=== PATIENT | male | born 1935 | race Hispanic/Latino ===

== ENCOUNTER 2018-05-09 19:40 | Inpatient (IN) | payer MEDICARE ==
[~2018-05-09] VITALS: Ht 154.9 cm; Wt 58.6 kg
[~2018-05-09 19:40] MED LIST: ACET-2247 PO; AEC81 PO; ALEN70TA47 PO; AMLO10TA6 PO; ATOR10 PO; BIMA12.5OS OD; COMB5OS OD; ENAL10TA PO; GLIP5TAB11 PO; [UNRECOGNIZED DRUG - OTHER]; [UNRECOGNIZED DRUG - OTHER]
[2018-05-09 20:06] LABS: APPEARANCE,URINE TURBID (CLEAR); BILIRUBIN,URINE NEGATIVE (NEGATIVE); COLOR,URINE YELLOW (YELLOW); GLUCOSE, URINE (UA) NEGATIVE (NEGATIVE); KETONES,URINE 5 mg/dL (NEGATIVE); LEUKOCYTE ESTERASE ,URINE LARGE (NEGATIVE); NITRATE,URINE NEGATIVE (NEGATIVE); OCCULT BLOOD,URINE LARGE (NEGATIVE); PROTEIN,URINE 100 (NEGATIVE); UROBILINOGEN,URINE 0.2 mg/dL (0.2-1.0)
[2018-05-09] MEDS ORDERED: MEROPENEM 1 GM VIAL ONE (20:06)
[2018-05-09] MEDS ORDERED: SODIUM CHLORIDE 0.9% 1000ML 1,000 ML IV ONE (20:06)
[2018-05-09 20:12] LABS: BASOPHILS % (AUTO) 0.1 % (0.0-5.0); HEMATOCRIT 36.2 % (42-54); LYMPHOCYTES % (AUTO) 1.5 % (21.0-51.0); MEAN CORPUSCULAR HEMOGLOBIN 30.6 pg (27.0-33.0); MEAN CORPUSCULAR HGB CONC 33.3 g/dL (32.0-36.0); MEAN CORPUSCULAR VOLUME 91.8 fL (79-99); MONOCYTES % (AUTO) 3.7 % (3.0-13.0); NEUTROPHILS % (AUTO) 94.7 % (40.0-77.0); PLATELET COUNT (AUTO) 131 K/uL (130-400); RED BLOOD CELL COUNT(AUTO) 3.94 MIL/uL (4.50-6.20); RED CELL DISTRIBUTION WIDTH 14.8 % (11.0-15.5); WHITE BLOOD COUNT (AUTO) 15.6 K/uL (4.8-10.8)
[2018-05-09 20:22] LABS: WBC,URINE >100 /HPF (0-1)
[2018-05-09 20:24] LABS: BACTERIA,URINE Moderate /HPF (None Seen); SQUAMOUS EPITHELIAL CELL,UR None Seen /HPF (0-2)
[2018-05-09 20:36] LABS: INR 1.03 (0.85-1.15); PARTIAL THROMBOPLASTIN TIME 29.8 SEC (26.3-35.5); PROTHROMBIN TIME 10.8 SEC (9.6-11.6)
[2018-05-09 20:40] LABS: ALBUMIN 1.9 g/dL (3.5-5.0); BILIRUBIN,TOTAL 1.1 mg/dL (0.2-1.0); CREATININE 3.7 mg/dL (0.5-1.5); POTASSIUM 5.9 mmol/L (3.5-5.1); TOTAL PROTEIN, SERUM 6.2 g/dL (6.0-8.3); TROPONIN I 0.1 ng/mL (0.00-0.06)
[2018-05-09] MEDS ORDERED: GLUCAGON 1MG KIT 1 MG ML IM PRN (21:45)
[2018-05-09] MEDS ORDERED: DEXTROSE 50%-WATER 50 ML DISP.SYRIN IV PRN (21:45)
[2018-05-09] MEDS ORDERED: SODIUM CHLORIDE 0.9% 10 ML VIAL IVP PRN (21:45)
[2018-05-09] MEDS ORDERED: NITROGLYCERIN 0.4 MG SL TAB SL PRN (21:45)
[2018-05-09] MEDS ORDERED: LACTULOSE 20 GM/30 ML UDCUP PO PRN (21:45)
[2018-05-09 23:20] VITALS: BP 175/81
[2018-05-10] MEDS: SODIUM CHLORIDE 0.9% 1000ML 1,000 ML IV SCH ×3 (00:14→16:44)
[2018-05-10] MEDS ORDERED: SODIUM POLYSTYRENE SULFONATE 15 GM/60 ML ML ONE (01:18)
[2018-05-10] MEDS ORDERED: BENZ200C53 PO (01:57)
[2018-05-10] MEDS ORDERED: LORA1TAB3 PO (01:57)
[2018-05-10] MEDS ORDERED: INSU100V12 SQ (01:57)
[2018-05-10] MEDS ORDERED: CARV6.25 PO (01:57)
[2018-05-10] MEDS ORDERED: DONE5TAB33 PO (01:57)
[2018-05-10] MEDS ORDERED: FAMO20TA8 PO (01:57)
[2018-05-10] MEDS ORDERED: LATA7.5D OU (01:57)
[2018-05-10] MEDS ORDERED: ALBU6.7H IH (01:57)
[2018-05-10] MEDS ORDERED: BRIM5DRO OU (01:57)
[2018-05-10] MEDS ORDERED: CALC0.253 PO (01:57)
[2018-05-10] MEDS ORDERED: MEMA5TAB PO (01:57)
[2018-05-10] MEDS ORDERED: MIRT7.5T11 PO (01:57)
[2018-05-10] MEDS ORDERED: TAMS0.4C32 PO (01:57)
[2018-05-10] MEDS ORDERED: [UNRECOGNIZED DRUG - CODE] OS (01:57)
[2018-05-10] MEDS ORDERED: RIVA20TA PO (01:57)
[2018-05-10] MEDS ORDERED: ACET650S30 RC (01:57)
[2018-05-10 04:32] VITALS: BP 183/81
[2018-05-10 05:05] VITALS: BP 158/79
[2018-05-10 06:15] LABS: BASOPHILS % (AUTO) 0.1 % (0.0-5.0); EOSINOPHILS % (AUTO) 0.1 % (0.0-8.0); HEMATOCRIT 39.6 % (42-54); LYMPHOCYTES % (AUTO) 4.2 % (21.0-51.0); MEAN CORPUSCULAR HEMOGLOBIN 29.2 pg (27.0-33.0); MEAN CORPUSCULAR HGB CONC 31.9 g/dL (32.0-36.0); MEAN CORPUSCULAR VOLUME 91.3 fL (79-99); MONOCYTES % (AUTO) 6.1 % (3.0-13.0); NEUTROPHILS % (AUTO) 89.5 % (40.0-77.0); PLATELET COUNT (AUTO) 88 K/uL (130-400); RED BLOOD CELL COUNT(AUTO) 4.33 MIL/uL (4.50-6.20); RED CELL DISTRIBUTION WIDTH 14.8 % (11.0-15.5); WHITE BLOOD COUNT (AUTO) 13.1 K/uL (4.8-10.8)
[2018-05-10 06:31] LABS: ALBUMIN 2.1 g/dL (3.5-5.0); BILIRUBIN,TOTAL 1.1 mg/dL (0.2-1.0); CREATININE 2.8 mg/dL (0.5-1.5); CRP QUANTITATIVE 150.6 mg/L (0.00-9.0); TOTAL PROTEIN, SERUM 6.3 g/dL (6.0-8.3)
[2018-05-10] MEDS: INSULIN R PO SS1 SQ SCH ×4 (06:40→21:00)
[2018-05-10 08:00] VITALS: BP 145/65
[2018-05-10] MEDS ORDERED: SODIUM POLYSTYRENE SULFONATE 15 GM/60 ML ML PO NR (09:00)
[2018-05-10] MEDS: MEROPENEM 1 GM VIAL IVP SCH ×3 (10:14→20:10)
[2018-05-10 11:00] VITALS: BP 132/55
[2018-05-10 16:00] VITALS: BP_SYST 109; BP_SYST 153; BP_DIAS 46; BP_DIAS 63
[2018-05-10 19:00] VITALS: BP 121/61
[2018-05-11 03:00] VITALS: BP 136/67
[2018-05-11 04:36] LABS: HEMATOCRIT 33.6 % (42-54); MEAN CORPUSCULAR HEMOGLOBIN 30.5 pg (27.0-33.0); MEAN CORPUSCULAR HGB CONC 33.1 g/dL (32.0-36.0); MEAN CORPUSCULAR VOLUME 92.2 fL (79-99); PLATELET COUNT (AUTO) 72 K/uL (130-400); RED BLOOD CELL COUNT(AUTO) 3.64 MIL/uL (4.50-6.20); RED CELL DISTRIBUTION WIDTH 14.9 % (11.0-15.5); WHITE BLOOD COUNT (AUTO) 12.1 K/uL (4.8-10.8)
[2018-05-11 04:41] LABS: CREATININE 1.9 mg/dL (0.5-1.5); POTASSIUM 3.1 mmol/L (3.5-5.1)
[2018-05-11] MEDS: SODIUM CHLORIDE 0.9% 1000ML 1,000 ML IV SCH ×2 (05:31→20:28)
[2018-05-11] MEDS: INSULIN R PO SS1 SQ SCH ×4 (06:41→20:48)
[2018-05-11 07:40] VITALS: BP 183/78
[2018-05-11] MEDS ORDERED: POTASSIUM CHLORIDE 20 MEQ ERTAB PO SCH (08:45)
[2018-05-11] MEDS: CLONIDINE HCL 0.1 MG TABLET PO PRN ×2 (09:00→14:01)
[2018-05-11] MEDS: MEROPENEM 1 GM VIAL IVP SCH (09:01)
[2018-05-11 11:47] VITALS: BP 181/63
[2018-05-11] MEDS ORDERED: LABETALOL 20 MG/4 ML DISP.SYRIN IV PRN (13:15)
[2018-05-11 16:00] VITALS: BP 137/55
[2018-05-11] MEDS: CEFTRIAXONE SODIUM 2 GM VIAL IVP SCH (18:15)
[2018-05-11 20:13] VITALS: BP 158/69
[2018-05-11] MEDS: CLONIDINE HCL 0.1 MG TABLET PO SCH (20:28)
[2018-05-12] VITALS: BP 161/69
[2018-05-12 04:32] VITALS: BP_SYST 157; BP_SYST 175; BP_DIAS 88
[2018-05-12] MEDS: INSULIN R PO SS1 SQ SCH ×4 (06:35→20:41)
[2018-05-12 07:46] VITALS: BP 164/70
[2018-05-12 09:29] LABS: BASOPHILS % (AUTO) 0.1 % (0.0-5.0); EOSINOPHILS % (AUTO) 0.9 % (0.0-8.0); HEMATOCRIT 33.9 % (42-54); LYMPHOCYTES % (AUTO) 13.8 % (21.0-51.0); MEAN CORPUSCULAR HGB CONC 32.9 g/dL (32.0-36.0); MEAN CORPUSCULAR VOLUME 91.3 fL (79-99); NEUTROPHILS % (AUTO) 76.2 % (40.0-77.0); PLATELET COUNT (AUTO) 52 K/uL (130-400); RED BLOOD CELL COUNT(AUTO) 3.71 MIL/uL (4.50-6.20); RED CELL DISTRIBUTION WIDTH 14.9 % (11.0-15.5); WHITE BLOOD COUNT (AUTO) 11.2 K/uL (4.8-10.8)
[2018-05-12 09:37] LABS: CREATININE 1.2 mg/dL (0.5-1.5); POTASSIUM 3.6 mmol/L (3.5-5.1)
[2018-05-12] MEDS: CLONIDINE HCL 0.1 MG TABLET PO SCH ×2 (10:07→20:39)
[2018-05-12] MEDS: AMLODIPINE BESYLATE 5 MG TAB PO SCH (10:07)
[2018-05-12 11:24] VITALS: BP 175/77
[2018-05-12] MEDS: CEFTRIAXONE SODIUM 2 GM VIAL IVP SCH (15:48)
[2018-05-12] MEDS: SODIUM CHLORIDE 0.9% 1000ML 1,000 ML IV SCH ×2 (16:43→22:41)
[2018-05-12 16:48] VITALS: BP 104/52
[2018-05-12 19:51] VITALS: BP 140/60
[2018-05-13] VITALS: BP 131/65
[2018-05-13 03:39] VITALS: BP 151/70
[2018-05-13 05:09] LABS: BASOPHILS % (AUTO) 0.1 % (0.0-5.0); EOSINOPHILS % (AUTO) 1.5 % (0.0-8.0); HEMATOCRIT 33.3 % (42-54); LYMPHOCYTES % (AUTO) 20.6 % (21.0-51.0); MEAN CORPUSCULAR HEMOGLOBIN 30.4 pg (27.0-33.0); MEAN CORPUSCULAR HGB CONC 33.1 g/dL (32.0-36.0); MEAN CORPUSCULAR VOLUME 92.1 fL (79-99); MONOCYTES % (AUTO) 8.5 % (3.0-13.0); NEUTROPHILS % (AUTO) 69.3 % (40.0-77.0); PLATELET COUNT (AUTO) 59 K/uL (130-400); RED BLOOD CELL COUNT(AUTO) 3.62 MIL/uL (4.50-6.20); WHITE BLOOD COUNT (AUTO) 11.6 K/uL (4.8-10.8)
[2018-05-13 05:17] LABS: CREATININE 1.1 mg/dL (0.5-1.5); POTASSIUM 3.3 mmol/L (3.5-5.1)
[2018-05-13] MEDS: INSULIN R PO SS1 SQ SCH ×4 (05:45→20:58)
[2018-05-13 07:54] VITALS: BP 131/71
[2018-05-13] MEDS: AMLODIPINE BESYLATE 5 MG TAB PO SCH (09:44)
[2018-05-13] MEDS: CLONIDINE HCL 0.1 MG TABLET PO SCH ×2 (09:44→19:58)
[2018-05-13] MEDS: MEROPENEM 1 GM VIAL IVP SCH ×2 (09:47→16:14)
[2018-05-13 11:59] VITALS: BP 142/74
[2018-05-13] MEDS: SODIUM CHLORIDE 0.9% 1000ML 1,000 ML IV SCH (12:10)
[2018-05-13 15:54] VITALS: BP 138/71
[2018-05-13 19:38] VITALS: BP 134/60
[2018-05-14] VITALS (7 sets, daily range): BP systolic 98–146; BP diastolic 41–70
[2018-05-14] MEDS ORDERED: SODIUM CHLORIDE 0.9% 50 ML IV ONE (00:30)
[2018-05-14] MEDS: MEROPENEM 1 GM VIAL IVP SCH ×3 (00:33→17:58)
[2018-05-14] MEDS: SODIUM CHLORIDE 0.9% 1000ML 1,000 ML IV SCH ×2 (01:31→14:25)
[2018-05-14] MEDS: INSULIN R PO SS1 SQ SCH ×4 (06:05→23:59)
[2018-05-14 09:15] LABS: BASOPHILS % (AUTO) 0.2 % (0.0-5.0); EOSINOPHILS % (AUTO) 1.5 % (0.0-8.0); HEMATOCRIT 34.6 % (42-54); LYMPHOCYTES % (AUTO) 19.3 % (21.0-51.0); MEAN CORPUSCULAR HEMOGLOBIN 29.5 pg (27.0-33.0); MEAN CORPUSCULAR HGB CONC 32.1 g/dL (32.0-36.0); MONOCYTES % (AUTO) 5.5 % (3.0-13.0); NEUTROPHILS % (AUTO) 73.5 % (40.0-77.0); PLATELET COUNT (AUTO) 63 K/uL (130-400); RED BLOOD CELL COUNT(AUTO) 3.76 MIL/uL (4.50-6.20); RED CELL DISTRIBUTION WIDTH 15.1 % (11.0-15.5); WHITE BLOOD COUNT (AUTO) 11.2 K/uL (4.8-10.8)
[2018-05-14] MEDS: AMLODIPINE BESYLATE 5 MG TAB PO SCH (09:24)
[2018-05-14] MEDS: CLONIDINE HCL 0.1 MG TABLET PO SCH (09:25)
[2018-05-14 09:46] LABS: POTASSIUM 3.4 mmol/L (3.5-5.1)
[2018-05-14] MEDS ORDERED: POTASSIUM CHLORIDE 10% ELIXIR 20 MEQ/15 ML UDCUP ONE (14:13)
[2018-05-14 21:51] LABS: INR 1.08 (0.85-1.15); PARTIAL THROMBOPLASTIN TIME 28.7 SEC (26.3-35.5); PROTHROMBIN TIME 11.3 SEC (9.6-11.6)
[2018-05-15] MEDS: CLONIDINE HCL 0.1 MG TABLET PO SCH ×2 (00:05→11:28)
[2018-05-15] MEDS: MEROPENEM 1 GM VIAL IVP SCH ×3 (01:31→17:32)
[2018-05-15] MEDS: SODIUM CHLORIDE 0.9% 1000ML 1,000 ML IV SCH ×2 (03:45→17:05)
[2018-05-15 04:33] VITALS: BP 104/51
[2018-05-15 05:23] LABS: BASOPHILS % (AUTO) 0.1 % (0.0-5.0); EOSINOPHILS % (AUTO) 1.9 % (0.0-8.0); HEMATOCRIT 31.1 % (42-54); LYMPHOCYTES % (AUTO) 25.5 % (21.0-51.0); MEAN CORPUSCULAR HEMOGLOBIN 31.2 pg (27.0-33.0); MEAN CORPUSCULAR HGB CONC 33.9 g/dL (32.0-36.0); MEAN CORPUSCULAR VOLUME 91.9 fL (79-99); MONOCYTES % (AUTO) 6.1 % (3.0-13.0); NEUTROPHILS % (AUTO) 66.4 % (40.0-77.0); NUCLEATED RED BLOOD CELLS 0.1 % (0.0-0.19); PLATELET COUNT (AUTO) 99 K/uL (130-400); RED BLOOD CELL COUNT(AUTO) 3.38 MIL/uL (4.50-6.20); WHITE BLOOD COUNT (AUTO) 9.7 K/uL (4.8-10.8)
[2018-05-15 05:33] LABS: ALBUMIN 1.6 g/dL (3.5-5.0); BILIRUBIN,TOTAL 0.9 mg/dL (0.2-1.0); POTASSIUM 3.1 mmol/L (3.5-5.1); TOTAL PROTEIN, SERUM 4.8 g/dL (6.0-8.3)
[2018-05-15] MEDS: INSULIN R PO SS1 SQ SCH ×3 (06:21→17:31)
[2018-05-15 07:49] VITALS: BP 119/51
[2018-05-15] MEDS ORDERED: LIDOCAINE HCL-MPF 1% 2ML VIAL IVP PRN ×2 (10:30→10:45)
[2018-05-15] MEDS ORDERED: POTASSIUM CHLORIDE 20MEQ/100ML 100 ML IV PRN ×2 (10:30→10:45)
[2018-05-15] MEDS ORDERED: POTASSIUM CHLORIDE 10% ELIXIR 20 MEQ/15 ML UDCUP PO PRN (10:45)
[2018-05-15] MEDS ORDERED: POTASSIUM CHLORIDE 20 MEQ ERTAB PO PRN (10:45)
[2018-05-15] MEDS: AMLODIPINE BESYLATE 5 MG TAB PO SCH (11:23)
[2018-05-15 11:36] VITALS: BP 126/86
[2018-05-15 11:36] LABS: CREATININE 0.9 mg/dL (0.5-1.5); POTASSIUM 3.5 mmol/L (3.5-5.1)
[2018-05-15 16:25] VITALS: BP 141/91
== END 2018-05-15 19:27 | DRG 872 ==
LOC: EDH 19:40 → EDHIP 21:05 → 4BH 22:00
PROVIDERS: ADMIT Hospitalist; ATTEND Hospitalist
PROC: 05HN33Z Insertion of Infusion Device into Left Internal Jugular Vein, Percutaneous Approach (ICD-10-PCS; principal; 2018-05-14)
PROC: 05HY33Z Insertion of Infusion Device into Upper Vein, Percutaneous Approach (ICD-10-PCS; 2018-05-15)
DX: A41.50 Gram-negative sepsis, unspecified (principal); N13.6 Pyonephrosis; E44.1 Mild protein-calorie malnutrition; N17.9 Acute kidney failure, unspecified; I25.10 Atherosclerotic heart disease of native coronary artery without angina pectoris; I12.9 Hypertensive chronic kidney disease with stage 1 through stage 4 chronic kidney disease, or unspecified chronic kidney disease; Z66 Do not resuscitate; E11.22 Type 2 diabetes mellitus with diabetic chronic kidney disease; C61 Malignant neoplasm of prostate; B96.20 Unspecified Escherichia coli [E. coli] as the cause of diseases classified elsewhere; D69.6 Thrombocytopenia, unspecified; E11.51 Type 2 diabetes mellitus with diabetic peripheral angiopathy without gangrene; R62.7 Adult failure to thrive; E21.3 Hyperparathyroidism, unspecified; E78.5 Hyperlipidemia, unspecified; E87.6 Hypokalemia; F03.90 Unspecified dementia, unspecified severity, without behavioral disturbance, psychotic disturbance, mood disturbance, and anxiety; M81.0 Age-related osteoporosis without current pathological fracture; N18.9 Chronic kidney disease, unspecified; N28.1 Cyst of kidney, acquired; N40.0 Benign prostatic hyperplasia without lower urinary tract symptoms; Z16.24 Resistance to multiple antibiotics; Z74.01 Bed confinement status; Z82.49 Family history of ischemic heart disease and other diseases of the circulatory system; Z82.62 Family history of osteoporosis; Z68.24 Body mass index [BMI] 24.0-24.9, adult; Z83.3 Family history of diabetes mellitus; Z85.46 Personal history of malignant neoplasm of prostate; Z85.51 Personal history of malignant neoplasm of bladder; Z87.440 Personal history of urinary (tract) infections; Z87.442 Personal history of urinary calculi; Z95.0 Presence of cardiac pacemaker; Z95.1 Presence of aortocoronary bypass graft; Z99.3 Dependence on wheelchair
CPT/HCPCS: 36415; 71045; 74176; 76770; 80048; 80053; 81001; 82550; 82948; 83605; 83874; 83880; 84484; 85025; 85027; 85610; 85730; 86140; 87040; 87077; 87088; 87186; 93005; 97039; A4218; A4344; C1894; J0696; J1815; J2185; J7030

== ENCOUNTER 2019-06-03 17:02 | Inpatient (IN) | payer MEDICARE ==
[~2019-06-03] VITALS: Ht 167.6 cm; Wt 68.7 kg
[~2019-06-03 17:02] MED LIST changes: -ACET-2247 PO; +ACET650S30 RC; -AEC81 PO; +ALBU6.7H9 IH; -ALEN70TA47 PO; -AMLO10TA6 PO; +BENZ200C53 PO; -BIMA12.5OS OD; +BRIM5DRO OU; +CALC0.253 PO; +CARV6.25 PO; -COMB5OS OD; +DONE5TAB33 PO; -ENAL10TA PO; +FAMO20TA8 PO; -GLIP5TAB11 PO; +INSU100V12 SQ; +LATA7.5D OU; +LORA1TAB3 PO; +MEMA5TAB PO; +MIRT7.5T11 PO; +NITR100C4 PO; +RIVA20TA PO; +TAMS0.4C32 PO; +[UNRECOGNIZED DRUG - CODE] OS; -[UNRECOGNIZED DRUG - OTHER]; -[UNRECOGNIZED DRUG - OTHER]
[2019-06-03 17:38] LABS: BASOPHILS % (AUTO) 0.2 % (0.0-5.0); EOSINOPHILS % (AUTO) 0.3 % (0.0-8.0); LYMPHOCYTES % (AUTO) 16.6 % (21.0-51.0); MEAN CORPUSCULAR HEMOGLOBIN 31.3 pg (27.0-33.0); MEAN CORPUSCULAR HGB CONC 30.6 g/dL (32.0-36.0); MEAN CORPUSCULAR VOLUME 102.4 fL (79-99); MONOCYTES % (AUTO) 6.9 % (3.0-13.0); NUCLEATED RED BLOOD CELLS 0.6 % (0.0-0.19); PLATELET COUNT (AUTO) 231 K/uL (130-400); RED BLOOD CELL COUNT(AUTO) 1.31 MIL/uL (4.50-6.20); RED CELL DISTRIBUTION WIDTH 20.7 % (11.0-15.5); WHITE BLOOD COUNT (AUTO) 18.3 K/uL (4.8-10.8)
[2019-06-03 17:50] LABS: INR 1.45 (0.85-1.15); PARTIAL THROMBOPLASTIN TIME 31.3 SEC (26.3-35.5)
[2019-06-03 18:01] LABS: HEMATOCRIT 13.4 % (42-54)
[2019-06-03 18:09] LABS: ALANINE AMINOTRANSFERASE 35 U/L (12-78); ALBUMIN 1.7 g/dL (3.5-5.0); ASPARTATE AMINOTRANSFERASE 24 U/L (10-37); BILIRUBIN,TOTAL 0.8 mg/dL (0.2-1.0); CARBON DIOXIDE 24 mmol/L (21-32); CHLORIDE 104 mmol/L (101-111); CREATINE KINASE, TOTAL 36 U/L (21-232); CREATININE 1.6 mg/dL (0.5-1.5); GLOMERULAR FILTR. RATE CALC 44 mL/min (>60); MYOGLOBIN 78 ng/mL (10-92); POTASSIUM 4.7 mmol/L (3.5-5.1); SODIUM SERUM 136 mmol/L (136-145); TOTAL PROTEIN, SERUM 4.6 g/dL (6.0-8.3); TROPONIN I < 0.04 ng/mL (0.00-0.06); UREA NITROGEN, BLOOD 39 mg/dL (7-18)
[2019-06-03 18:22] LABS: GLUCOSE,RANDOM 494 mg/dL (70-105)
[2019-06-03] MEDS ORDERED: ZOSYN 3.375GM+NS 50ML 50 ML IV ONE (18:29)
[2019-06-03 18:43] LABS: APPEARANCE,URINE Cloudy (CLEAR); BILIRUBIN,URINE Negative (NEGATIVE); COLOR,URINE Yellow (YELLOW); GLUCOSE, URINE (UA) >=1000 mg/dL (NEGATIVE); KETONES,URINE Negative (NEGATIVE); LEUKOCYTE ESTERASE ,URINE Negative (NEGATIVE); NITRATE,URINE Negative (NEGATIVE); OCCULT BLOOD,URINE Large (NEGATIVE); PROTEIN,URINE Negative (NEGATIVE); UROBILINOGEN,URINE 0.2 mg/dL (0.2-1.0)
[2019-06-03 18:54] LABS: BACTERIA,URINE Rare /HPF (None Seen)
[2019-06-03 18:56] LABS: SQUAMOUS EPITHELIAL CELL,UR Rare /HPF (0-2)
[2019-06-03] MEDS ORDERED: ACETAMINOPHEN 325 MG TAB PO PRN ×2 (20:00)
[2019-06-03] MEDS ORDERED: ONDANSETRON HCL 4 MG/2 ML VIAL IV PRN (20:00)
[2019-06-03] MEDS ORDERED: CEFTRIAXONE SODIUM 1 GM IVP SCH (20:15)
[2019-06-03] MEDS ORDERED: AZITHROMYCIN 500MG+NS 250ML 250 ML IV SCH (20:30)
[2019-06-03] MEDS ORDERED: SODIUM CHLORIDE 0.9% 1000ML 1,000 ML IV ONE (21:15)
[2019-06-03] MEDS ORDERED: INSULIN HUMULIN R 100 UNIT/ML 3ML ONE (22:13)
--- NOTE | 2019-06-03 22:30 | NUR ---
1 unit of blood started at ER. I finished giving the unit and started unit number 2.
[2019-06-03] MEDS ORDERED: AMLO10TA7 PO (23:24)
[2019-06-03] MEDS ORDERED: BUPR75TA8 PO (23:24)
[2019-06-03] MEDS ORDERED: ASPI-555 PO (23:24)
[2019-06-03] MEDS ORDERED: ACET325C6 PO (23:24)
[2019-06-03] MEDS ORDERED: DONE10TA8 PO (23:24)
[2019-06-03] MEDS ORDERED: LEVE100S7 PO (23:40)
[2019-06-03] MEDS ORDERED: TICA90TA PO (23:52)
[2019-06-03] MEDS ORDERED: MENT113O8 TP (23:52)
[2019-06-03] MEDS ORDERED: MEMA10TA11 PO (23:52)
[2019-06-03] MEDS ORDERED: FURO20TA6 PO (23:52)
[2019-06-03] MEDS ORDERED: OLAN2.5T3 PO (23:52)
[2019-06-04] VITALS (18 sets, daily range): BP systolic 115–171; BP diastolic 40–84
--- NOTE | 2019-06-04 00:21 | NUR ---
bahena catheter present on arrival from [facility], [place] Addendum: 06/04/19 at 0040 by MICHELLE LYNCH RN Amended: Links added.
[2019-06-04] MEDS: INSULIN HUMULIN R 100 UNIT/ML 3ML SQ SCH ×5 (00:53→21:00)
[2019-06-04] MEDS ORDERED: ZOSYN 3.375GM+NS 50ML 50 ML IV SCH (02:00)
[2019-06-04] MEDS: SODIUM CHLORIDE 0.9% 1000ML 1,000 ML IV SCH ×3 (02:55→18:23)
--- NOTE | 2019-06-04 03:43 | NUR ---
CONFUSED Pt reoriented prn,disoriented to time and place.Fall risk precautions reinforced.
[2019-06-04 05:49] LABS: BASOPHILS % (AUTO) 0.2 % (0.0-5.0); EOSINOPHILS % (AUTO) 0.1 % (0.0-8.0); HEMATOCRIT 23.1 % (42-54); LYMPHOCYTES % (AUTO) 17.9 % (21.0-51.0); MEAN CORPUSCULAR HEMOGLOBIN 31.7 pg (27.0-33.0); MEAN CORPUSCULAR HGB CONC 32.1 g/dL (32.0-36.0); MEAN CORPUSCULAR VOLUME 98.8 fL (79-99); MONOCYTES % (AUTO) 7.8 % (3.0-13.0); NUCLEATED RED BLOOD CELLS 2.3 % (0.0-0.19); PLATELET COUNT (AUTO) 167 K/uL (130-400); RED BLOOD CELL COUNT(AUTO) 2.34 MIL/uL (4.50-6.20); RED CELL DISTRIBUTION WIDTH 15.6 % (11.0-15.5); WHITE BLOOD COUNT (AUTO) 18.7 K/uL (4.8-10.8)
[2019-06-04 05:57] LABS: CREATININE 1.1 mg/dL (0.5-1.5); POTASSIUM 4.3 mmol/L (3.5-5.1)
[2019-06-04] MEDS ORDERED: PILOCARPINE HCL 2% 15 ML DROPS OS SCH (09:00)
[2019-06-04] MEDS: BUPROPION HCL 150 MG TABLET.SA PO SCH (09:00)
[2019-06-04] MEDS: MEMANTINE HCL 5 MG TABLET PO SCH ×2 (09:00→21:00)
[2019-06-04] MEDS: ZINC OXIDE OINT 56.7 GM TP SCH ×2 (09:00→21:00)
[2019-06-04] MEDS: LEVETIRACETAM 250 MG TABLET PO SCH ×2 (09:00→21:00)
[2019-06-04] MEDS: FUROSEMIDE 20 MG TABLET PO SCH (09:00)
[2019-06-04] MEDS ORDERED: FAMOTIDINE/PF 20 MG/2 ML VIAL IV SCH (09:00)
[2019-06-04] MEDS: CARVEDILOL 6.25 MG TABLET PO SCH ×2 (09:00→21:00)
[2019-06-04] MEDS: AMLODIPINE BESYLATE 5 MG TAB PO SCH (09:00)
[2019-06-04] MEDS: PILOCARPINE HCL 2% 15 ML DROPS OS SCH ×3 (09:06→22:11)
--- NOTE | 2019-06-04 10:00 | NUR ---
DYSPHAGIA EVCRISTINA LOVE. RECOMMEND PUREED, HONEY-THICK LIQUIDS; PILLS CRUSHED. RECOMMENDATIONS: 1. MBSS 2. GOALS TO BE ESTABLISHED AFTER MBSS. Addendum: 06/04/19 at 1708 by CLARIBEL CALI, [facility] Amended: Links added.
--- NOTE | 2019-06-04 10:21 | NUR ---
DR PETERS CALLED BACK. EGD FOR TOMORROW. PROTONIX IV ORDERED.
[2019-06-04 12:00] LABS: HEMATOCRIT 19.7 % (42-54)
[2019-06-04] MEDS ORDERED: VANCOMYCIN PROTOCOL PER PHARMACY IV SCH (12:30)
[2019-06-04] MEDS ORDERED: SODIUM CHLORIDE 0.9% 250 ML IV ONE (12:41)
[2019-06-04] MEDS: ZOSYN 3.375GM+NS 50ML 50 ML IV SCH ×2 (12:42→22:10)
--- NOTE | 2019-06-04 14:00 | NUR ---
[facility] CM met with pt currently unable to answer questions appropriately, called daughter on facesheet. Spoke to Basilia Meza [phone]. As per daughter patient is assists with ADL's, currently long-term at [facility]. Plan dc back to [facility] once stable, MAI Telephone consent obtained. DC plan back to [facility]. CM to cont to follow up. Addendum: 06/04/19 at 1404 by ANASTACIA CUNHA LVN CM Amended: Links added.
--- NOTE | 2019-06-04 14:29 | NUR ---
[facility] CONSULT PATIENT ASSESSED REQUESTED: PATIENT PRESENTS WITH DTI TO RIGHT HEEL; [facility] RECOMMENDATIONS SUBMITTED. Addendum: 06/04/19 at 1430 by CRISTOBAL AVILA LVN Amended: Links added.
--- NOTE | 2019-06-04 14:30 | NUR ---
RD NOTIFICATION DX: ANEMIA, POSITIVE STOOL OCCULT. DIET: NPO. PT FEELING NAUSEOUS AND WEAK DURING TIME OF VISIT. PT CAME FROM [facility] AND WAS EATING WELL PER FAMILY. PT HAVING DARK COLORED STOOLS. CONSULT REGISTERED LAND SURVEYOR FOR DIET MODIFICATIONS DUE TO SWALLOWING/ CHEWING DIFFICULTIES. REGISTERED LAND SURVEYOR AND GI ALREADY ON PT CASE PER NURSE. RD RECOMMENDS CONTINUE NPO. CONSULT GI FOR CLEARANCE TO ADVANCE DIET/ IDENTIFY SOURCE OF BLEED IN ORDER TO PROVIDE FEEDINGS. RD WILL CONTINUE TO MONITOR AND FOLLOW UP NEEDED. THANK YOU. Addendum: 06/04/19 at [address] Amended: Links added.
[2019-06-04] MEDS ORDERED: VANCOMYCIN 1.5 GM in SODIUM CHLORIDE 0.9% 250 ML IV SCH (14:45)
[2019-06-04] MEDS ORDERED: COMPOUND IV REFRIGERATED 1 EACH IVSOLN MISC PRN (15:00)
--- NOTE | 2019-06-04 15:30 | NUR ---
PATIENT TRANSFERRED TO ICU. REPORT GIVEN TO CHUN. NO CONCERNS VOICED.
--- NOTE | 2019-06-04 15:42 | NUR ---
CM Note: [facility] reacceptance CM spoke to Roxane w/[facility], received clinicals. Stated pt does not need new PASRR at this time. Pt has reacceptance. EMS filled out pending to be faxed w/current date, primary nurse to call [facility] once pt ready to DC. Primary nurse aware. CM to cont to follow up.
--- NOTE | 2019-06-04 20:06 | NUR ---
Assumed care of patient after report received from [facility]. PRBC unit #2 of 2 ordered hung to infuse at 1925. Patient lethargic. Initial assessment done. Contact Precautions Isolation in progress. No family in room.
[2019-06-04] MEDS: TAMSULOSIN HCL 0.4 MG CAP.ER.24H PO SCH (21:00)
[2019-06-04] MEDS ORDERED: PANTOPRAZOLE 40 MG/VIAL IVP SCH (21:00)
[2019-06-04] MEDS: DONEPEZIL HCL 5 MG TAB PO SCH (21:00)
[2019-06-04] MEDS ORDERED: MIRTAZAPINE 15 MG TABLET PO SCH (21:00)
[2019-06-04] MEDS: ATORVASTATIN CALCIUM 10 MG TABLET PO SCH (21:00)
[2019-06-04] MEDS: LATANOPROST 2.5 ML DROPS OU SCH (22:10)
[2019-06-04 22:47] LABS: HEMATOCRIT 32.2 % (42-54)
[2019-06-05] VITALS (19 sets, daily range): BP systolic 122–161; BP diastolic 49–74
[2019-06-05 04:34] LABS: BASOPHILS % (AUTO) 0.4 % (0.0-5.0); HEMATOCRIT 29.2 % (42-54); LYMPHOCYTES % (AUTO) 20.3 % (21.0-51.0); MEAN CORPUSCULAR HEMOGLOBIN 30.9 pg (27.0-33.0); MEAN CORPUSCULAR VOLUME 90.8 fL (79-99); MONOCYTES % (AUTO) 8.3 % (3.0-13.0); NUCLEATED RED BLOOD CELLS 2.3 % (0.0-0.19); PLATELET COUNT (AUTO) 174 K/uL (130-400); RED BLOOD CELL COUNT(AUTO) 3.22 MIL/uL (4.50-6.20); RED CELL DISTRIBUTION WIDTH 16.3 % (11.0-15.5); WHITE BLOOD COUNT (AUTO) 12.9 K/uL (4.8-10.8)
[2019-06-05 04:44] LABS: INR 0.99 (0.85-1.15); PROTHROMBIN TIME 10.4 SEC (9.6-11.6)
[2019-06-05 04:47] LABS: CREATININE 0.9 mg/dL (0.5-1.5); POTASSIUM 3.8 mmol/L (3.5-5.1)
[2019-06-05] MEDS: INSULIN HUMULIN R 100 UNIT/ML 3ML SQ SCH ×4 (05:58→22:26)
[2019-06-05] MEDS: ZOSYN 3.375GM+NS 50ML 50 ML IV SCH ×3 (06:07→22:07)
[2019-06-05] MEDS: PILOCARPINE HCL 2% 15 ML DROPS OS SCH ×3 (07:52→22:46)
[2019-06-05] MEDS ORDERED: FAMOTIDINE/PF 20 MG/2 ML VIAL IV SCH (09:00)
[2019-06-05] MEDS ORDERED: PANTOPRAZOLE SODIUM 40 MG TABLET.DR PO SCH (09:00)
--- NOTE | 2019-06-05 09:00 | NUR ---
HOLD MBSS Pt LETHARGIC AT THIS TIME. NURSE BELKIS AND PUNCHER AND FASTENER ATTEMPTED TO AROUSE Pt AND WERE NOT SUCCESSFUL. Pt NPO AT THIS TIME FOR EGD PROCEDURE. RECOMMEND MBSS BE SCHEDULED FOR TOMORROW. PUNCHER AND FASTENER WILL CONTINUE TO FOLLOW Pt. Addendum: 06/05/19 at 1243 by CLARIBEL CALI, SPT ST Amended: Links added.
[2019-06-05] MEDS: PANTOPRAZOLE 40 MG/VIAL IVP SCH ×2 (10:19→21:00)
[2019-06-05] MEDS: VANCOMYCIN 750MG + NS 250 ML IV SCH ×4 (10:23→18:00)
[2019-06-05 11:58] LABS: HEMATOCRIT 32.6 % (42-54)
[2019-06-05] MEDS: AMLODIPINE BESYLATE 5 MG TAB PO SCH (14:11)
[2019-06-05] MEDS: LEVETIRACETAM 250 MG TABLET PO SCH ×2 (14:11→22:07)
[2019-06-05] MEDS: CARVEDILOL 6.25 MG TABLET PO SCH ×2 (14:11→21:00)
[2019-06-05] MEDS: MEMANTINE HCL 5 MG TABLET PO SCH ×2 (14:12→22:06)
[2019-06-05] MEDS: ZINC OXIDE OINT 56.7 GM TP SCH ×2 (14:18→22:48)
[2019-06-05] MEDS: FUROSEMIDE 20 MG TABLET PO SCH (14:22)
[2019-06-05] MEDS: SODIUM CHLORIDE 0.9% 1000ML 1,000 ML IV SCH (14:26)
[2019-06-05 19:44] LABS: HEMATOCRIT 32.1 % (42-54)
[2019-06-05] MEDS: DONEPEZIL HCL 5 MG TAB PO SCH (22:06)
[2019-06-05] MEDS: ATORVASTATIN CALCIUM 10 MG TABLET PO SCH (22:07)
[2019-06-05] MEDS: TAMSULOSIN HCL 0.4 MG CAP.ER.24H PO SCH (22:07)
--- NOTE | 2019-06-05 22:30 | NUR ---
HEART RATE 60 NON ADMIN OF CARVERDILOL PT'S HR WAS 60. PT ALERT ORIENTED X 2, PT DENIED ANY PAIN NOR CHEST PAIN NOR DYSPNEA. DISORIENTED WITH SITUATION AND TIME SO RE ORIENTED PATIENT AGAIN. HIGH FALL RISK PRECAUTION APPLIED. MONITORES CLOSELY
[2019-06-05] MEDS: LATANOPROST 2.5 ML DROPS OU SCH (22:47)
[2019-06-06 00:32] VITALS: BP 132/64
[2019-06-06 03:40] LABS: POTASSIUM 3.6 mmol/L (3.5-5.1)
[2019-06-06 03:46] VITALS: BP 140/48
[2019-06-06 05:04] LABS: BASOPHILS % (AUTO) 0.2 % (0.0-5.0); EOSINOPHILS % (AUTO) 1.2 % (0.0-8.0); HEMATOCRIT 32.8 % (42-54); LYMPHOCYTES % (AUTO) 12.3 % (21.0-51.0); MEAN CORPUSCULAR HGB CONC 33.4 g/dL (32.0-36.0); MEAN CORPUSCULAR VOLUME 92.7 fL (79-99); MONOCYTES % (AUTO) 8.3 % (3.0-13.0); NUCLEATED RED BLOOD CELLS 0.1 % (0.0-0.19); PLATELET COUNT (AUTO) 182 K/uL (130-400); RED BLOOD CELL COUNT(AUTO) 3.54 MIL/uL (4.50-6.20); RED CELL DISTRIBUTION WIDTH 16.2 % (11.0-15.5); WHITE BLOOD COUNT (AUTO) 13.7 K/uL (4.8-10.8)
[2019-06-06] MEDS: ZOSYN 3.375GM+NS 50ML 50 ML IV SCH ×3 (05:05→20:27)
[2019-06-06] MEDS: INSULIN HUMULIN R 100 UNIT/ML 3ML SQ SCH ×4 (06:24→21:53)
--- NOTE | 2019-06-06 06:33 | NUR ---
Urine cx gram negative rods
[2019-06-06] MEDS: VANCOMYCIN 750MG + NS 250 ML IV SCH ×4 (07:05→18:59)
[2019-06-06 07:30] VITALS: BP 141/58
[2019-06-06] MEDS: PANTOPRAZOLE 40 MG/VIAL IVP SCH ×2 (09:24→20:27)
[2019-06-06] MEDS: MEMANTINE HCL 5 MG TABLET PO SCH ×2 (09:25→20:28)
[2019-06-06] MEDS: BUPROPION HCL 150 MG TABLET.SA PO SCH (09:26)
[2019-06-06] MEDS: AMLODIPINE BESYLATE 5 MG TAB PO SCH (09:26)
[2019-06-06] MEDS: FUROSEMIDE 20 MG TABLET PO SCH (09:27)
[2019-06-06] MEDS: LEVETIRACETAM 250 MG TABLET PO SCH ×2 (09:27→20:28)
[2019-06-06] MEDS: CARVEDILOL 6.25 MG TABLET PO SCH ×2 (09:27→20:34)
[2019-06-06] MEDS: ZINC OXIDE OINT 56.7 GM TP SCH ×2 (09:30→20:29)
[2019-06-06] MEDS: PILOCARPINE HCL 2% 15 ML DROPS OS SCH ×3 (09:32→20:29)
[2019-06-06] MEDS: SODIUM CHLORIDE 0.9% 1000ML 1,000 ML IV SCH (10:23)
[2019-06-06 11:00] VITALS: BP 117/57
--- NOTE | 2019-06-06 11:46 | NUR ---
CM Note: [facility] reacceptance CM spoke to Roxane sexton/radha kern pending MD to round for clearance today. EMS arranged and faxed for today, primary nurse to call [facility] once pt ready to DC. Primary nurse aware. CM to cont to follow up.
--- NOTE | 2019-06-06 12:53 | NUR ---
MBSS COMPLETED. +ASPIRATION WITH MIXED AND NECTAR-THICK LIQUIDS. RECOMMEND PUREED, HONEY-THICK LIQUIDS; PILLS CRUSHED WITH APPLESAUCE. Pt TO REMAIN ON BASELINE DIET. Pt NOT A CANDIDATE FOR DIET UPGRADE. Addendum: 06/06/19 at 1254 by CLARIBEL CALI, SPT ST Amended: Links added.
[2019-06-06 16:00] VITALS: BP 124/51
[2019-06-06] MEDS: DONEPEZIL HCL 5 MG TAB PO SCH (20:28)
[2019-06-06] MEDS: LATANOPROST 2.5 ML DROPS OU SCH (20:28)
[2019-06-06] MEDS: ATORVASTATIN CALCIUM 10 MG TABLET PO SCH (20:28)
[2019-06-06] MEDS: TAMSULOSIN HCL 0.4 MG CAP.ER.24H PO SCH (20:28)
[2019-06-06 21:03] VITALS: BP 124/58
[2019-06-07 00:01] VITALS: BP 146/65
[2019-06-07 03:37] VITALS: BP 149/62
[2019-06-07 04:56] LABS: BASOPHILS % (AUTO) 0.5 % (0.0-5.0); EOSINOPHILS % (AUTO) 2.1 % (0.0-8.0); HEMATOCRIT 32.7 % (42-54); LYMPHOCYTES % (AUTO) 15.3 % (21.0-51.0); MEAN CORPUSCULAR HEMOGLOBIN 30.6 pg (27.0-33.0); MEAN CORPUSCULAR VOLUME 92.9 fL (79-99); MONOCYTES % (AUTO) 7.7 % (3.0-13.0); NEUTROPHILS % (AUTO) 74.4 % (40.0-77.0); PLATELET COUNT (AUTO) 204 K/uL (130-400); RED BLOOD CELL COUNT(AUTO) 3.52 MIL/uL (4.50-6.20); RED CELL DISTRIBUTION WIDTH 16.7 % (11.0-15.5); WHITE BLOOD COUNT (AUTO) 11.2 K/uL (4.8-10.8)
[2019-06-07 05:06] LABS: POTASSIUM 3.7 mmol/L (3.5-5.1)
[2019-06-07] MEDS: ZOSYN 3.375GM+NS 50ML 50 ML IV SCH ×2 (05:36→14:29)
[2019-06-07] MEDS: SODIUM CHLORIDE 0.9% 1000ML 1,000 ML IV SCH (06:23)
[2019-06-07] MEDS: INSULIN HUMULIN R 100 UNIT/ML 3ML SQ SCH ×3 (06:35→17:08)
[2019-06-07] MEDS: VANCOMYCIN 750MG + NS 250 ML IV SCH ×4 (06:39→18:00)
[2019-06-07 07:58] VITALS: BP 129/90
[2019-06-07] MEDS: LEVETIRACETAM 250 MG TABLET PO SCH (10:09)
[2019-06-07] MEDS: MEMANTINE HCL 5 MG TABLET PO SCH (10:10)
[2019-06-07] MEDS: AMLODIPINE BESYLATE 5 MG TAB PO SCH (10:11)
[2019-06-07] MEDS: FUROSEMIDE 20 MG TABLET PO SCH (10:11)
[2019-06-07] MEDS: CARVEDILOL 6.25 MG TABLET PO SCH (10:11)
[2019-06-07] MEDS: ZINC OXIDE OINT 56.7 GM TP SCH (10:12)
[2019-06-07] MEDS: PANTOPRAZOLE 40 MG/VIAL IVP SCH (10:12)
[2019-06-07] MEDS: PILOCARPINE HCL 2% 15 ML DROPS OS SCH ×2 (10:12→14:29)
[2019-06-07 11:57] VITALS: BP 145/67
--- NOTE | 2019-06-07 12:05 | NUR ---
FOLLOW UP COMPLETED. Pt PARTICIPATED IN BREAKFAST. NURSE SERGE REPORTS THAT SHE THICKENED ONE OF THE SIDES TO A THICKER TEXTURE TO ENSURE HONEY-THICK LIQUIDS. Pt CURRENTLY ON PUREED, HONEY-THICK LIQUIDS, PILLS CRUSHED WITH APPLESAUCE. Pt PARTICIPATED IN TRIALS WITH NO OVERT S/S OF ASPIRATION. Pt IS AT HIGH RISK FOR ASPIRATION AND IS A SILENT ASPIRATOR. STRICT 90 DEGREE ANGLE DURING P.O. TO BE ENFORCED. BALWINDER MUNIZ AND NURSE VALENTINE VERBALIZED UNDERSTANDING AND COMPLIANCE WITH RECOMMENDATIONS. Addendum: 06/07/19 at 1214 by CLARIBEL CALI, [facility] ST Amended: Links added.
[2019-06-07 16:00] VITALS: BP 129/57
--- NOTE | 2019-06-07 18:56 | NUR ---
MED REC FAXED TO [facility] AND REPORT GIVEN. IV REMOVED AND PRESSURE HELD TO SITE AND SITE DRESSED, PATIENT UNABLE TO SIGN DUE TO CONFUSION. EMS CALL FOR FOR PATIENT TRANSFER.
--- NOTE | 2019-06-07 22:10 | NUR ---
FOLLOW UP WITH EMS Called EMS to check on the status of pickup. Spoke to dispatcher Braden; patient is scheduled for transfer but there is still several patients before Mr. Meza.
--- NOTE | 2019-06-07 22:45 | NUR ---
DISCHARGE Patient was discharged by day shift. Patient resting in bed, AA&O X2. No shortness of breath or distress. EMS is here to transfer patient to [facility]. Packet given to EMS. Patient will be going with a bahena catheter. Patient belongings were packed and transfer with him.
== END 2019-06-07 22:53 | DRG 871 ==
LOC: EDH 17:02 → EDHIP 19:46 → 3AH 21:28 → 2BH 06-04 16:26 → 3AH 06-05 18:07
PROVIDERS: ADMIT Internal Medicine; ATTEND Internal Medicine
PROC: 30233N1 Transfusion of Nonautologous Red Blood Cells into Peripheral Vein, Percutaneous Approach (ICD-10-PCS; 2019-06-03)
PROC: 0DJ08ZZ Inspection of Upper Intestinal Tract, Via Natural or Artificial Opening Endoscopic (ICD-10-PCS; principal; 2019-06-05)
DX: A41.9 Sepsis, unspecified organism (principal); E43 Unspecified severe protein-calorie malnutrition; D62 Acute posthemorrhagic anemia; K92.2 Gastrointestinal hemorrhage, unspecified; J90 Pleural effusion, not elsewhere classified; N39.0 Urinary tract infection, site not specified; E83.52 Hypercalcemia; F03.90 Unspecified dementia, unspecified severity, without behavioral disturbance, psychotic disturbance, mood disturbance, and anxiety; I12.9 Hypertensive chronic kidney disease with stage 1 through stage 4 chronic kidney disease, or unspecified chronic kidney disease; M77.9 Enthesopathy, unspecified; K02.9 Dental caries, unspecified; S00.11XA Contusion of right eyelid and periocular area, initial encounter; K44.9 Diaphragmatic hernia without obstruction or gangrene; D50.9 Iron deficiency anemia, unspecified; E78.2 Mixed hyperlipidemia; N18.3 Chronic kidney disease, stage 3 (moderate); I25.10 Atherosclerotic heart disease of native coronary artery without angina pectoris; E11.22 Type 2 diabetes mellitus with diabetic chronic kidney disease; W18.39XA Other fall on same level, initial encounter; Z82.49 Family history of ischemic heart disease and other diseases of the circulatory system; I25.2 Old myocardial infarction; Z95.0 Presence of cardiac pacemaker; Z85.51 Personal history of malignant neoplasm of bladder; Z95.1 Presence of aortocoronary bypass graft; Z88.8 Allergy status to other drugs, medicaments and biological substances; Y93.89 Activity, other specified; Y92.89 Other specified places as the place of occurrence of the external cause; Y99.8 Other external cause status; Z68.24 Body mass index [BMI] 24.0-24.9, adult; Z79.01 Long term (current) use of anticoagulants; Z86.73 Personal history of transient ischemic attack (TIA), and cerebral infarction without residual deficits
CPT/HCPCS: 36415; 36430; 43235; 70450; 70486; 71045; 72125; 74150; 74230; 80048; 80053; 81001; 82270; 82550; 82948; 83605; 83874; 83880; 84145; 84484; 85014; 85018; 85025; 85610; 85730; 86850; 86900; 86901; 86922; 87040; 87077; 87088; 87186; 92610; 92611; 93005; 97039; 99291; C9113; G0378; J0456; J0696; J1815; J2543; J3370; J3490; J7030; P9016

== ENCOUNTER 2020-09-11 02:04 | Inpatient (IN) | payer MEDICARE ==
[~2020-09-11] VITALS: Ht 157.5 cm; Wt 70.9 kg
[~2020-09-11 02:04] MED LIST changes: +ACET325C6 PO; -ACET650S30 RC; -ALBU6.7H9 IH; +AMLO-258 PO; +ASPI-556 PO; -BRIM5DRO OU; +BUPR75TA8 PO; +DONE10TA8 PO; +FURO20TA6 PO; +LEVE100S7 PO; +MEMA10TA11 PO; -MEMA5TAB PO; +MENT113O8 TP; -MIRT7.5T11 PO; -NITR100C4 PO; +OLAN2.5T3 PO; +TICA90TA PO
[2020-09-11 02:30] LABS: BASOPHILS % (AUTO) 0.3 % (0.0-5.0); EOSINOPHILS % (AUTO) 0.1 % (0.0-8.0); HEMATOCRIT 42.1 % (42-54); LYMPHOCYTES % (AUTO) 4.5 % (21.0-51.0); MEAN CORPUSCULAR HEMOGLOBIN 28.6 pg (27.0-33.0); MEAN CORPUSCULAR HGB CONC 32.3 g/dL (32.0-36.0); MEAN CORPUSCULAR VOLUME 88.4 fL (79-99); MONOCYTES % (AUTO) 4.7 % (3.0-13.0); NEUTROPHILS % (AUTO) 89.4 % (40.0-77.0); PLATELET COUNT (AUTO) 408 K/uL (130-400); RED BLOOD CELL COUNT(AUTO) 4.76 MIL/uL (4.50-6.20); RED CELL DISTRIBUTION WIDTH 16.3 % (11.0-15.5); WHITE BLOOD COUNT (AUTO) 27.1 K/uL (4.8-10.8)
[2020-09-11 02:42] LABS: CREATININE 1.3 mg/dL (0.5-1.5); POTASSIUM 4.5 mmol/L (3.5-5.1)
[2020-09-11] MEDS ORDERED: 0.9%NACL 1000ML 2,000 ML IV ONE (02:44)
[2020-09-11 02:45] LABS: INR 1.03 (0.85-1.15)
[2020-09-11 02:47] LABS: ALBUMIN 2.9 g/dL (3.5-5.0); BILIRUBIN,TOTAL 0.9 mg/dL (0.2-1.0); TOTAL PROTEIN, SERUM 8.1 g/dL (6.0-8.3)
[2020-09-11] MEDS ORDERED: CEFTRIAXONE 2GM VIAL ONE (02:54)
[2020-09-11 03:13] LABS: APPEARANCE,URINE Cloudy (CLEAR); BILIRUBIN,URINE Negative (NEGATIVE); COLOR,URINE Yellow (YELLOW); GLUCOSE, URINE (UA) Negative (NEGATIVE); KETONES,URINE Negative (NEGATIVE); LEUKOCYTE ESTERASE ,URINE Large (NEGATIVE); NITRATE,URINE Negative (NEGATIVE); OCCULT BLOOD,URINE Negative (NEGATIVE); PROTEIN,URINE POS 2+ mg/dL (NEGATIVE); UROBILINOGEN,URINE 0.2 mg/dL (0.2-1.0)
[2020-09-11 03:29] LABS: AMORPHOUS SEDIMENT,UR Moderate /LPF (None Seen); BACTERIA,URINE Moderate /HPF (None Seen); RBC,URINE 0-1 /HPF (0-1); SQUAMOUS EPITHELIAL CELL,UR 0-2 /HPF (0-2); TRIPLE PHOSPHATE CRYSTAL,UR Few /LPF (None Seen)
[2020-09-11] MEDS ORDERED: AZITHROMYCIN 500MG+NS 250ML 250 ML IV ONE (05:51)
[2020-09-11] MEDS ORDERED: DEXAMETHASONE SOD PHOSPHATE 10MG/ML 1ML VIAL ONE (05:51)
[2020-09-11] MEDS ORDERED: MAG/ALUM/SIMETH 30 ML UDCUP PO PRN (06:15)
[2020-09-11] MEDS ORDERED: ALBUTEROL 0.083% 2.5 MG/3 ML INH IH PRN (06:15)
[2020-09-11] MEDS ORDERED: LACTULOSE 20 GM/30 ML UDCUP PO PRN (06:15)
[2020-09-11] MEDS ORDERED: DiphenhydrAMINE HCL 50 MG/ML VIAL IV PRN (06:15)
[2020-09-11] MEDS ORDERED: NITROGLYCERIN 0.4 MG SL TAB SL PRN (06:15)
[2020-09-11] MEDS: AZITHROMYCIN 500MG+NS 250ML 250 ML IV SCH (06:15)
[2020-09-11] MEDS ORDERED: ACETAMINOPHEN 325 MG TAB PO PRN ×2 (06:15)
[2020-09-11] MEDS: CEFTRIAXONE 1G VIAL IV SCH (06:15)
[2020-09-11] MEDS ORDERED: ONDANSETRON 4MG INJ IV PRN (06:15)
[2020-09-11] MEDS ORDERED: DIPHENHYDRAMINE HCL 25 MG CAPSULE PO PRN (06:15)
[2020-09-11] MEDS ORDERED: ERGOCALCIFEROL (VITAMIN D2) 50,000 UNIT CAPSULE PO SCH (06:15)
[2020-09-11] MEDS ORDERED: GUAIFENESIN-DM 200/20 MG 10 ML PO PRN (06:15)
[2020-09-11] MEDS ORDERED: ACETYLCYSTEINE 600 MG CAPSULE ONE (07:29)
[2020-09-11] MEDS ORDERED: ZINC SULFATE 220 CAPSULE ONE (07:29)
[2020-09-11] MEDS ORDERED: ASCORBIC ACID 500 MG TAB ONE (07:29)
[2020-09-11] MEDS ORDERED: ENOXAPARIN SODIUM 40 MG/0.4 ML SYRINGE SQ ONE (07:30)
[2020-09-11] MEDS ORDERED: FAMOTIDINE 20MG VIAL IV ONE (07:30)
[2020-09-11] MEDS: ZINC SULFATE 220 CAPSULE PO SCH (09:00)
[2020-09-11] MEDS: FAMOTIDINE 20MG VIAL IV SCH ×2 (09:00→20:02)
[2020-09-11] MEDS ORDERED: ACETYLCYSTEINE 600 MG CAPSULE PO SCH (09:00)
[2020-09-11] MEDS: ASCORBIC ACID 500 MG TAB PO SCH (09:00)
[2020-09-11] MEDS ORDERED: ENOXAPARIN SODIUM 40 MG/0.4 ML SYRINGE SQ SCH (09:00)
[2020-09-11 09:30] VITALS: BP 147/73
[2020-09-11] MEDS ORDERED: CYAN100099 PO (11:55)
[2020-09-11] MEDS ORDERED: FAMO20TA8 PO (11:55)
[2020-09-11] MEDS ORDERED: INSULIN GLARGINE 100 UNITS/ML 10 ML VIAL SQ SCH (12:00)
[2020-09-11] MEDS ORDERED: INSU100I21 SQ (12:06)
[2020-09-11] MEDS ORDERED: INSREG SQ (12:07)
[2020-09-11] MEDS ORDERED: CYCL30DR OP (12:09)
[2020-09-11] MEDS ORDERED: ATOR20TA65 PO (12:10)
[2020-09-11 12:42] VITALS: BP 125/71
[2020-09-11] MEDS: LEVETIRACETAM 100 MG/ML 5 ML UDCUP PO SCH ×3 (14:00→20:57)
[2020-09-11] MEDS: INSULIN HUMULIN R 100 UNIT/ML 3ML SQ SCH ×2 (16:43→20:19)
[2020-09-11 17:44] VITALS: BP 137/81
[2020-09-11 20:00] VITALS: BP 140/71
[2020-09-11] MEDS: DONEPEZIL HCL 5 MG TAB PO SCH (20:02)
[2020-09-11] MEDS: CARVEDILOL 6.25 MG TABLET PO SCH (20:03)
[2020-09-11] MEDS: TAMSULOSIN HCL 0.4 MG CAP.ER.24H PO SCH (20:03)
[2020-09-11] MEDS: MEMANTINE HCL 5 MG TABLET PO SCH (20:03)
[2020-09-11] MEDS: ATORVASTATIN 20 MG TABLET PO SCH (20:03)
[2020-09-11] MEDS ORDERED: 0.9% NACL 250ML 250 ML IV ONE (20:12)
[2020-09-11] MEDS: LATANOPROST 2.5 ML DROPS OU SCH (20:57)
[2020-09-11] MEDS: **HM**(Cyclosporine (Restasis) 1 EACH) OP SCH (21:00)
[2020-09-11] MEDS ORDERED: ENOXAPARIN SODIUM 80 MG/0.8 ML SQ SCH (21:00)
[2020-09-11] MEDS: ENOXAPARIN SODIUM 80 MG/0.8 ML SQ SCH (22:08)
[2020-09-12] MEDS: CEFTRIAXONE 1G VIAL IV SCH (03:47)
[2020-09-12] MEDS: AZITHROMYCIN 500MG+NS 250ML 250 ML IV SCH (03:48)
[2020-09-12 04:00] VITALS: BP 123/60
[2020-09-12 05:23] LABS: BASOPHILS % (AUTO) 0.2 % (0.0-5.0); HEMATOCRIT 36.3 % (42-54); LYMPHOCYTES % (AUTO) 12.5 % (21.0-51.0); MEAN CORPUSCULAR HEMOGLOBIN 28.1 pg (27.0-33.0); MEAN CORPUSCULAR HGB CONC 31.4 g/dL (32.0-36.0); MEAN CORPUSCULAR VOLUME 89.4 fL (79-99); MONOCYTES % (AUTO) 5.4 % (3.0-13.0); NEUTROPHILS % (AUTO) 80.9 % (40.0-77.0); PLATELET COUNT (AUTO) 254 K/uL (130-400); RED BLOOD CELL COUNT(AUTO) 4.06 MIL/uL (4.50-6.20); RED CELL DISTRIBUTION WIDTH 16.4 % (11.0-15.5); WHITE BLOOD COUNT (AUTO) 15.3 K/uL (4.8-10.8)
[2020-09-12 05:36] LABS: ALBUMIN 2.4 g/dL (3.5-5.0); BILIRUBIN,TOTAL 0.8 mg/dL (0.2-1.0); CRP QUANTITATIVE 64.2 mg/L (0.00-9.0); POTASSIUM 4.3 mmol/L (3.5-5.1); TOTAL PROTEIN, SERUM 6.8 g/dL (6.0-8.3)
[2020-09-12] MEDS: INSULIN HUMULIN R 100 UNIT/ML 3ML SQ SCH ×4 (06:51→22:06)
[2020-09-12 07:44] VITALS: BP 137/84
[2020-09-12] MEDS ORDERED: ENOXAPARIN SODIUM 40 MG/0.4 ML SYRINGE SQ SCH (09:00)
[2020-09-12] MEDS: **HM**(Cyclosporine (Restasis) 1 EACH) OP SCH ×2 (09:00→21:00)
[2020-09-12] MEDS: ASPIRIN 81 MG EC TAB PO SCH (09:22)
[2020-09-12] MEDS: FAMOTIDINE 20MG VIAL IV SCH ×2 (09:22→21:46)
[2020-09-12] MEDS: LEVETIRACETAM 100 MG/ML 5 ML UDCUP PO SCH ×3 (09:22→21:46)
[2020-09-12] MEDS: CYANOCOBALAMIN (VITAMIN B-12) 1,000 MCG TABLET PO SCH (09:22)
[2020-09-12] MEDS: MEMANTINE HCL 5 MG TABLET PO SCH ×2 (09:22→21:46)
[2020-09-12] MEDS: ZINC SULFATE 220 CAPSULE PO SCH (09:22)
[2020-09-12] MEDS: ASCORBIC ACID 500 MG TAB PO SCH (09:22)
[2020-09-12] MEDS: CALCITRIOL 0.25 MCG CAP PO SCH (09:22)
[2020-09-12] MEDS: CARVEDILOL 6.25 MG TABLET PO SCH ×2 (09:23→21:48)
[2020-09-12] MEDS: ENOXAPARIN SODIUM 80 MG/0.8 ML SQ SCH ×2 (09:24→21:49)
[2020-09-12 10:53] VITALS: BP 155/79
[2020-09-12 16:35] VITALS: BP 152/67
[2020-09-12 20:00] VITALS: BP 157/73
[2020-09-12] MEDS: TAMSULOSIN HCL 0.4 MG CAP.ER.24H PO SCH (21:47)
[2020-09-12] MEDS: ATORVASTATIN 20 MG TABLET PO SCH (21:47)
[2020-09-12] MEDS: DONEPEZIL HCL 5 MG TAB PO SCH (21:47)
[2020-09-12] MEDS: LATANOPROST 2.5 ML DROPS OU SCH (21:57)
[2020-09-13] VITALS (7 sets, daily range): BP systolic 123–162; BP diastolic 61–72
[2020-09-13 05:20] LABS: BASOPHILS % (AUTO) 0.2 % (0.0-5.0); EOSINOPHILS % (AUTO) 0.2 % (0.0-8.0); HEMATOCRIT 37.5 % (42-54); MEAN CORPUSCULAR HGB CONC 31.5 g/dL (32.0-36.0); MEAN CORPUSCULAR VOLUME 88.9 fL (79-99); MONOCYTES % (AUTO) 8.3 % (3.0-13.0); NEUTROPHILS % (AUTO) 71.4 % (40.0-77.0); PLATELET COUNT (AUTO) 331 K/uL (130-400); RED BLOOD CELL COUNT(AUTO) 4.22 MIL/uL (4.50-6.20); RED CELL DISTRIBUTION WIDTH 16.4 % (11.0-15.5); WHITE BLOOD COUNT (AUTO) 12.3 K/uL (4.8-10.8)
[2020-09-13 05:38] LABS: ALBUMIN 2.3 g/dL (3.5-5.0); CREATININE 0.6 mg/dL (0.5-1.5); CRP QUANTITATIVE 23.1 mg/L (0.00-9.0); POTASSIUM 3.9 mmol/L (3.5-5.1); TOTAL PROTEIN, SERUM 6.6 g/dL (6.0-8.3)
[2020-09-13] MEDS: CEFTRIAXONE 1G VIAL IV SCH (06:15)
[2020-09-13] MEDS: AZITHROMYCIN 500MG+NS 250ML 250 ML IV SCH (06:15)
[2020-09-13] MEDS: INSULIN HUMULIN R 100 UNIT/ML 3ML SQ SCH ×4 (07:30→21:32)
[2020-09-13] MEDS: **HM**(Cyclosporine (Restasis) 1 EACH) OP SCH ×2 (09:00→21:00)
[2020-09-13] MEDS ORDERED: BUPROPION HCL 150 MG TABLET.SA PO SCH (09:00)
[2020-09-13] MEDS: ASPIRIN 81 MG EC TAB PO SCH (09:42)
[2020-09-13] MEDS: CYANOCOBALAMIN (VITAMIN B-12) 1,000 MCG TABLET PO SCH (09:42)
[2020-09-13] MEDS: FAMOTIDINE 20MG VIAL IV SCH ×2 (09:42→21:21)
[2020-09-13] MEDS: CALCITRIOL 0.25 MCG CAP PO SCH (09:42)
[2020-09-13] MEDS: ASCORBIC ACID 500 MG TAB PO SCH (09:42)
[2020-09-13] MEDS: MEMANTINE HCL 5 MG TABLET PO SCH ×2 (09:44→21:21)
[2020-09-13] MEDS: LEVETIRACETAM 100 MG/ML 5 ML UDCUP PO SCH ×3 (09:44→21:22)
[2020-09-13] MEDS: CARVEDILOL 6.25 MG TABLET PO SCH ×2 (09:44→20:07)
[2020-09-13] MEDS: ZINC SULFATE 220 CAPSULE PO SCH (09:44)
[2020-09-13] MEDS: ENOXAPARIN SODIUM 80 MG/0.8 ML SQ SCH ×2 (09:45→21:23)
[2020-09-13] MEDS: TAMSULOSIN HCL 0.4 MG CAP.ER.24H PO SCH (21:21)
[2020-09-13] MEDS: DONEPEZIL HCL 5 MG TAB PO SCH (21:21)
[2020-09-13] MEDS: LATANOPROST 2.5 ML DROPS OU SCH (21:21)
[2020-09-13] MEDS: ATORVASTATIN 20 MG TABLET PO SCH (21:21)
== END 2020-09-13 21:45 | DRG 871 ==
LOC: EDH 02:04 → EDHIP 06:09 → 2DH 08:46 → 4CH 18:13
PROVIDERS: ADMIT Family Medicine; ATTEND Family Medicine
DX: A41.9 Sepsis, unspecified organism (principal); J18.9 Pneumonia, unspecified organism; I82.431 Acute embolism and thrombosis of right popliteal vein; N13.6 Pyonephrosis; J98.11 Atelectasis; R65.20 Severe sepsis without septic shock; F03.90 Unspecified dementia, unspecified severity, without behavioral disturbance, psychotic disturbance, mood disturbance, and anxiety; Z20.822 Contact with and (suspected) exposure to COVID-19; E11.22 Type 2 diabetes mellitus with diabetic chronic kidney disease; E11.51 Type 2 diabetes mellitus with diabetic peripheral angiopathy without gangrene; E78.5 Hyperlipidemia, unspecified; N18.9 Chronic kidney disease, unspecified; B96.4 Proteus (mirabilis) (morganii) as the cause of diseases classified elsewhere; I12.9 Hypertensive chronic kidney disease with stage 1 through stage 4 chronic kidney disease, or unspecified chronic kidney disease; I25.10 Atherosclerotic heart disease of native coronary artery without angina pectoris; I25.2 Old myocardial infarction; Z85.46 Personal history of malignant neoplasm of prostate; Z82.49 Family history of ischemic heart disease and other diseases of the circulatory system; Z79.82 Long term (current) use of aspirin; Z79.899 Other long term (current) drug therapy
CPT/HCPCS: 36415; 71045; 71250; 76700; 80053; 82728; 82948; 83615; 83880; 84145; 85025; 85378; 86140; 87077; 87186; 87426; 87449; 93005; 93970; G0378; J0456; J0696; J1100; J1650; J1815; J3490; J7030; J7050